=== PATIENT | female | born 1995 | race Asian ===

== ENCOUNTER 2017-03-20 15:42 | Emergency (ER) | payer OTHER ==
[2017-03-20 16:29] LABS: ABS Basophils 0.1 10^3/ul (0-0.2); ABS Eosinophils 0.2 10^3/ul (0-0.6); ABS Lymphocytes 1.4 10^3/ul (1.0-4.8); ABS Monocytes 0.7 10^3/ul (0-0.8); ABS Neutrophils 5.7 10^3/ul (1.5-7.7); ABS Nucleated RBC 0 10^3/ul; Eosinophil % 2.6 % (0-6); Hematocrit 41 % (35-47); Hemoglobin 13.7 g/dl (12.0-16.0); Lymphocyte % 17.4 % (25-47); Mean Corpuscular HGB Conc 34 g/dl (31-36); Mean Corpuscular Hemoglobin 31 pg (27-31); Mean Corpuscular Volume 92 fL (80-97); Mean Platelet Volume 9 um3 (7.4-10.4); Nucleated Red Blood Cells % 0; Platelet Count 227 10^3/ul (150-450); Red Blood Count 4.39 10^6/ul (4.0-5.4); Red Cell Distribution Width 13 % (10.5-15)
--- NOTE | 2017-03-20 16:45 | ED ---
Syncope/Near Syncope - HPI Summary HPI Summary: 21-year-old female presents with facial laceration after syncopal event today. She states she was in lab and they were watching a demonstration on a machine when she all of a sudden felt very lightheaded and felt her vision going dark. She states she felt short of breath at that time. She took a couple steps back and then passed out. She states she struck her chin on the side of the table. She has a small laceration on her chin. She was actively bleeding. She states her immunizations are up-to-date. She denies any symptoms now. She denies any dizziness or lightheadedness currently. She denies any chest pain or shortness of breath. She has never passed out before. She denies any abdominal pain or vaginal cleeding. She ate lunch today. She denies any family history of syncope or sudden cardiac . She denies any cardiac family history. She is on control. - History Of Current Complaint Chief Complaint: EDSyncope Time Seen by Provider: 03/20/17 15:45 PMH/Surg Hx/FS Hx/Imm Hx Endocrine/Hematology History: Denies: Hx Anticoagulant Therapy Cardiovascular History: Denies: Hx Hypertension Infectious Disease History: No Infectious Disease History: Denies: Traveled Outside the [place] in Last 30 Days - Family History Known Family History: Negative: Cardiac Disease - Social History Alcohol Use: None Substance Use Type: Reports: None Smoking Status (MU): Never Smoked Tobacco Review of Systems Negative: Fever Negative: Chest Pain Negative: Shortness Of Breath Positive: Other - facial laceration Positive: Syncope All Other Systems Reviewed And Are Negative: Yes Physical Exam Triage Information Reviewed: Yes Vital Signs On Initial Exam: Initial Vitals Temp Pulse Resp BP Pulse Ox 99.1 F 63 18 113/70 98 03/20/17 15:44 03/20/17 15:44 03/20/17 15:44 03/20/17 15:44 03/20/17 15:44 Vital Signs Reviewed: Yes Appearance: Positive: Well-Appearing Skin: Positive: Warm, Dry, Other - 2 and 1/2cm by 1/2cm laceration to left side of chin Head/Face: Positive: Normal Head/Face Inspection Eyes: Positive: Normal, EOMI, SATNAM, Conjunctiva Clear ENT: Positive: Normal ENT inspection, Pharynx normal, TMs normal Respiratory/Lung Sounds: Positive: Clear to Auscultation, Breath Sounds Present Cardiovascular: Positive: Normal, RRR Abdomen Description: Positive: Nontender, Soft Bowel Sounds: Positive: Present Musculoskeletal: Positive: Normal Neurological: Positive: Sensory/Motor Intact, Alert, Oriented to Person Place, Time, CN Intact II-III Psychiatric: Positive: Normal Procedures - Laceration/Wound Repair 1 Location: face Description: Linear Anesthesia: Local, 1.0% Length, Depth and Shape: 2 and 1/2cm by 1/2cm Irrigated w/ Saline (ccs): 100 Laceration/Wound Explored: clean, no foreign body removed Closure: Single Layer Suture Type: Prolene - 5-0 Number of Sutures: 3 Layer Closure?: No Sterile Dressing Applied?: No Diagnostics - Vital Signs Vital Signs Temp Pulse Resp BP Pulse Ox 03/20/17 16:00 61 18 105/68 99 03/20/17 15:51 71 98 03/20/17 15:50 113/70 03/20/17 15:44 99.1 F 63 18 113/70 98 - Laboratory Lab Results: Lab Results 03/20/17 03/20/17 Range/Units 16:15 16:15 WBC 8.0 (3.5-10.8) 10^3/ul RBC 4.39 (4.0-5.4) 10^6/ul Hgb 13.7 (12.0-16.0) g/dl Hct 41 (35-47) % MCV 92 (80-97) fL MCH 31 (27-31) pg MCHC 34 (31-36) g/dl RDW 13 (10.5-15) % Plt Count 227 (150-450) 10^3/ul MPV 9 (7.4-10.4) um3 Neut % (Auto) 70.7 (38-83) % Lymph % (Auto) 17.4 L (25-47) % [place] % (Auto) 8.5 (1-9) % Eos % (Auto) 2.6 (0-6) % Baso % (Auto) 0.8 (0-2) % Absolute Neuts (auto) 5.7 (1.5-7.7) 10^3/ul Absolute Lymphs (auto) 1.4 (1.0-4.8) 10^3/ul Absolute Monos (auto) 0.7 (0-0.8) 10^3/ul Absolute Eos (auto) 0.2 (0-0.6) 10^3/ul Absolute Basos (auto) 0.1 (0-0.2) 10^3/ul Absolute Nucleated RBC 0 10^3/ul Nucleated RBC % 0 D-Dimer, Quantitative < 200 (Less Than 230) ng/mL Result Diagrams: 03/20/17 16:15 03/20/17 16:15 Lab Statement: Any lab studies that have been ordered have been reviewed, and results considered in the medical decision making process. - EKG No standard instances Cardiac Rate: NL EKG Rhythm: Sinus Rhythm EKG Interpretation: normal sinus rhythm Course/Dx Course Of Treatment: 21-year-old female presents with facial laceration after syncopal event today. She states she was in lab and they were watching a demonstration on a machine when she all of a sudden felt very lightheaded and felt her vision going dark. She states she felt short of breath at that time. She took a couple steps back and then passed out. She states she struck her chin on the side of the table. She has a small laceration on her chin. She was actively bleeding. She states her immunizations are up-to-date. She denies any symptoms now. She denies any dizziness or lightheadedness currently. She denies any chest pain or shortness of breath. She has never passed out before. She denies any abdominal pain or vaginal cleeding. She ate lunch today. She denies any family history of syncope or sudden cardiac . She denies any cardiac family history. She is on control. On exam has 2 1/2 cm by 1/2cm laceration of left chin. Close laceration with 3 sutures. Normal neuro exam. Lungs clear to auscultation. Heart regular rate and rhythm without murmur. ekg normal sinus rhythm with small q waves that probably insignificant. troponin zero. labs within normal limits. Patient follow-up with [facility] for syncopal event and for suture removal. syncope likely a vasovagal response. Patient understands and agrees with plan. - Diagnoses Differential Diagnosis/HQI/PQRI: Positive: Hypoglycemia, Hypovolemia, Pulmonary Embolism, Vasovagal Episode, Other - laceration, avulsion Provider Diagnoses: Syncope, Facial laceration Discharge - Discharge Plan Condition: Good Disposition: HOME Patient Education Materials: Care For Your Stitches (ED), Syncope (ED) Referrals: Pending Sale To [facility] - Dusty MONTEZ [Primary Care Provider] - Additional Instructions: Keep area clean and dry for 24 hours Take Tylenol or ibuprofen for pain every 6 hours Drink plenty of fluids Eat small snacks as tolerated Follow up with Dusty within 5 days for suture removal Return to ED if develop any new or worsening symptoms
[2017-03-20 17:21] LABS: EGFR Non-African American 102.7 (>60)
[2017-03-20 17:26] LABS: Urine Appearance Clear; Urine Blood Negative (Negative); Urine Color Yellow; Urine Ketones Negative (Negative); Urine Protein Negative (Negative); Urine Specific Gravity 1.024 (1.010-1.030); Urine Urobilinogen Negative (Negative)
[2017-03-20 18:01] VITALS: BP 115/63
== END 2017-03-20 18:02 | disposition home or self-care (01) ==
LOC: ED 15:42
DX: S01.81XA Laceration without foreign body of other part of head, initial encounter (principal); W01.198A Fall on same level from slipping, tripping and stumbling with subsequent striking against other object, initial encounter; R55 Syncope and collapse
CPT/HCPCS: 12011; 36415; 80053; 81003; 83605; 83735; 84443; 84484; 84702; 85025; 85379; 93005; 99282